=== PATIENT | male | born 1995 | race Caucasian/White ===

== ENCOUNTER 2022-07-14 12:00 | Emergency (ER) | payer BC ==
[2022-07-14] MEDS ORDERED: Diphtheria,Pertussis(Acell),Tetanus Vaccine 0.5 ML Syringe IM ONE (12:15)
[2022-07-14] MEDS ORDERED: Bacitracin/Neomycin/Polymyxin B Oint 0.9 GM U/D Packet TOP ONE (12:27)
== END 2022-07-14 12:55 | disposition home or self-care (01) ==
LOC: KA.ED 12:07
DX: S61.305A Unspecified open wound of left ring finger with damage to nail, initial encounter (principal); Z88.0 Allergy status to penicillin; Z23 Encounter for immunization; W26.8XXA Contact with other sharp object(s), not elsewhere classified, initial encounter
CPT/HCPCS: 73140-F3; 90471; 90715; 99282-25; 99283